=== PATIENT | female | born 1975 | race Caucasian/White ===

== ENCOUNTER 2020-12-29 10:44 | Emergency (ER) | payer OTHER ==
[~2020-12-29] VITALS: Ht 162.6 cm; Wt 65.8 kg
[2020-12-29] MEDS ORDERED: LEVO100T10 PO (12:28)
--- NOTE | 2020-12-29 12:32 | NUR ---
Patient discharged to home in stable condition. Written and verbal after care instructions given. Patient verbalizes understanding of instructions. Stressed follow up or return to ER for worsening s/s.
== END 2020-12-29 12:33 | disposition home or self-care (01) ==
LOC: ER 10:44
DX: E03.9 Hypothyroidism, unspecified (principal); Z76.0 Encounter for issue of repeat prescription; Z88.2 Allergy status to sulfonamides
CPT/HCPCS: A4663